=== PATIENT | female | born 1985 | race Caucasian/White ===

== ENCOUNTER 2019-06-07 02:25 | Inpatient (IN) ==
[2019-06-07] MEDS ORDERED: OXYTOCIN 30 UNITS/500 ML BAG IV PRN ×3 (03:15→23:16)
[2019-06-07] MEDS ORDERED: miSOPROStoL 50 MCG TAB PO ONE (03:18)
[2019-06-07 03:53] LABS: Hematocrit (blood only) 40.5 % (37-47); Hemoglobin 13.7 g/dL (12.0-16.0); Mean Corpuscular Hemoglobin 29.3 pg (25-34); Mean Corpuscular Volume 86.7 fL (80-100); Mean Platelet Volume 11.6 fL (7.4-10.4); Platelet Count 229 K/uL (130-400); RDW Coefficient of Variation 13.8 % (11.5-14.5); RDW Standard Deviation 43.1 fL (36.4-46.3); Red Blood Count 4.67 M/uL (4.2-5.4); White Blood Count 10.25 K/uL (4.8-10.8)
[2019-06-07 04:07] LABS: Mean Corpuscular Hgb Conc 33.8 g/dL (32-36)
--- NOTE | 2019-06-07 04:40 | History & Physical Report ---
Date of Service June 07, 2019 Assessment & Plan (1) Obesity during : (2) Large for gestational age fetus: (3) Spontaneous rupture of membranes: prom, contractions too frequent for cytotec. PLan to allow expectant management for now. Pitocin as needed. fetus category one. History of Present Illness Chief Complaint: rom Primary Care Provider: NO PCP Patient is a with iup at 40 4/7 weeks who presents to labor and delivery with c/o of rom at 1:15am. Notes some cramping. No vb. +fm. uncomplicated other than obesity. Had a 32 week us that showed efw in 93%. Had repeat us at 36 weeks and efw of 93%. Was offered induction for suspected LGA baby after 39 weeks but declined and wanted to await labor. labs--O+/ab-/ri/pap nl/rprnr/hepb-/hiv-/gc/ct-/gtt x 2 nl/panorama low risk/afp neg/ gbs neg Allergies Allergy/AdvReac Type Severity Reaction Status Date / Time No Known Drug Allergies Allergy Verified 06/01/19 12:17 Home Medications Home Medications Medication Instructions Recorded Confirmed Type vit no.[id number] tab PO DAILY 06/07/19 History [ Vitamin] Patient History Medical History (Updated 06/07/19 @ 04:47 by Desire Toth MD, FACOG) History of breast lump History of kidney stones History of varicella History of wisdom tooth extraction Surgical History (Updated 06/07/19 @ 04:47 by Desire Toth MD, FACOG) H/O oral surgery History of appendectomy Social History (Updated 03/01/19 @ 09:41 by Farheen Greene) Preferred Language: Marshallese Communication Ability: Effective Winter Intern Required: No Beliefs That Will Affect Care: None marital status: Current Living Situation: Spouse Other Information That Helps Us Care for You: No Feels Safe at Home: Yes Safety Concerns: Feels Safe At This Time Smoking Status: Never smoker Do You Dip or Chew Tobacco: No ; Second Hand Exposure: No ; Hx Alcohol Use: No Hx Substance Use: No Review of Systems All systems reviewed & are unremarkable except as noted in HPI & below Physical Exam Constitutional: WD/WN, vitals as above Gastrointestinal (Abdomen): soft, nt, nd Psychiatric: A+Ox3, euthymic affect Genitourinary: grossly ruptured cx--ft/70/-2, nursing toco--q2-4min efm--145 with mod variability, accels to 170s, no decels Results & Data Vital Signs (Past 12 Hours) Vital Signs Temp Pulse Resp BP 06/07/19 02:41 91 H 121/79 06/07/19 02:40 36.7 C 91 H 18 121/79
--- NOTE | 2019-06-07 07:24 | Obstetrical Progress Note ---
Date of Service June 07, 2019 Assessment & Plan (1) Spontaneous rupture of membranes: making progress, will get epidural. fetus category one. continue current management Subjective Getting uncomfortable, shaky and nausea. considering getting epidural Physical Exam Constitutional: WD/WN, vitals as above Psychiatric: A+Ox3, euthymic affect Genitourinary: cx--stretched to 3/90/-2, can feel forebag, green mec fluid noted toco--q2-4min efm--130s with mod variability, accels to 160s, no decels Results & Data Vital Signs (Past 12 Hours) Vital Signs Temp Pulse Resp BP 06/07/19 07:11 36.5 C 86 20 131/78 06/07/19 04:45 36.8 C 20 06/07/19 02:41 91 H 121/79 06/07/19 02:40 36.7 C 91 H 18 121/79 PG Care Time/CCT Total # of Minutes Spent Total Time Spent with Patient: Total time spent is greater than 50% in coordination of care (as documented) at patient's floor/unit and/or counseling patient:
[2019-06-07] MEDS: LACTATED RINGER'S 1,000 ML IV PRN ×3 (07:26→19:08)
[2019-06-07] MEDS ORDERED: fentaNYL citrate 100 MCG/2 ML VIAL ONE (07:31)
[2019-06-07] MEDS ORDERED: BUPIVACAINE 0.25% 30 ML VIAL ONE (07:31)
[2019-06-07] MEDS ORDERED: fentaNYL 2MCG/ML ROPIV 1.25MG/ML 100 ML BAG EPI ONE (07:31)
[2019-06-07] MEDS ORDERED: ePHEDrine sulfate 50 MG/ML AMP ONE (07:31)
[2019-06-07] MEDS ORDERED: DiphenhydrAMINE HCL 50 MG/ML VIAL IV PRN (07:35)
[2019-06-07] MEDS ORDERED: NALBUPHINE HCL INJ 10 MG/ML AMP IV PRN (07:35)
[2019-06-07] MEDS ORDERED: NALOXONE HCL 1 MG in SODIUM CHLORIDE 0.9% 1000ML 1,000 ML IV PRN (07:35)
[2019-06-07] MEDS ORDERED: fentaNYL 2MCG/ML ROPIV 1.25MG/ML 100 ML BAG EPI PRN (07:35)
[2019-06-07] MEDS ORDERED: ePHEDrine sulfate 50 MG/ML AMP IV PRN (07:35)
[2019-06-07] MEDS ORDERED: NALOXONE HCL 0.4 MG/1 ML VIAL/CARP IV PRN (07:35)
--- NOTE | 2019-06-07 08:07 | Anesthesiology Consultation ---
Date of Service June 07, 2019 Assessment & Plan Chart Review Chart Review: Acceptable Risk for Labor Epidural Consults Requested none History Height/Weight Height: 5 ft 11 in Weight: 136.078 kg Allergies Allergy/AdvReac Type Severity Reaction Status Date / Time No Known Drug Allergies Allergy Verified 06/01/19 12:17 Medications Home Medications Medication Instructions Recorded Confirmed Last Taken vit no.[id number] tab PO DAILY 06/07/19 06/06/19 20:00 [ Vitamin] Active Medications Generic Name Dose Route Start Last Admin Trade Name Freq PRN Reason Stop Dose Admin Lactated Ringer's 1,000 mls @ 125 mls/hr 06/07/19 03:15 06/07/19 07:26 Lr IV 06/09/19 03:14 999 mls/hr .Q8H PRN Administration L&D Protocol Protocol Past Medical History Medical History History of breast lump History of kidney stones History of varicella History of wisdom tooth extraction Past Family History Family History Grandmother (Maternal) Anemia Mother Breast cancer Uncle Colorectal cancer maternal Grandfather (Maternal) Diabetes Hypertension Past Surgical History Surgical History H/O oral surgery History of appendectomy Social History Smoking Status: Never smoker Do You Dip or Chew Tobacco: No Hx Alcohol Use: No Hx Substance Use: No substance use type: does not use Physical Exam Vital Signs Last Vital Signs Temp 36.5 C 06/07/19 07:11 Pulse 101 H 06/07/19 08:06 Resp 20 06/07/19 07:11 BP 103/58 L 06/07/19 08:06 Pulse Ox 98 06/07/19 08:04 Testing Laboratory Results 06/07/19 03:30
--- NOTE | 2019-06-07 16:55 | Labor Progress Brief Note ---
Date of Service June 07, 2019 Subjective Reason For Note: Routine Evaluation Assessment & Plan (1) Supervision of normal intrauterine in primigravida: 34yo G1 at 40.4 weeks GA. PROM 1. Fetus: Cat 1 2. Labor: Progressing slowly. Continue pitocin 3. Vitals wnl 4. GBS: Negative 5. LGA: Discussed increased risk of shoulder dystocia and PPH. (2) Large for gestational age fetus: (3) Spontaneous rupture of membranes: Physical Exam Genitourinary: Manual OB Exam: + cervical dilation (4.5), + cervical effacement 80%, + station -1 and + amniotic fluid meconium OB Exam Monitor Tracing: + external FHT monitor used, + external uterine monitor used, + category I and + normal FHT variability; no late decelerations present and no variable decelerations Results & Data Vital Signs (Past 12 Hours) Vital Signs Temp Pulse Resp BP Pulse Ox 06/07/19 16:50 83 100 06/07/19 16:45 89 131/53 L 100 06/07/19 16:44 86 92 06/07/19 16:39 83 100 06/07/19 16:34 86 100 06/07/19 16:29 78 111/55 L 99 06/07/19 16:24 79 100 06/07/19 16:19 79 100 06/07/19 16:14 93 H 97/54 L 97 06/07/19 16:09 69 97 06/07/19 16:04 73 97 06/07/19 15:59 75 97 06/07/19 15:58 72 20 103/57 L 06/07/19 15:54 74 100 06/07/19 15:49 82 99 06/07/19 15:44 78 99 06/07/19 15:43 83 110/65 06/07/19 15:39 79 100 06/07/19 15:34 86 98 06/07/19 15:29 70 109/57 L 100 06/07/19 15:24 74 98 06/07/19 15:19 75 97 06/07/19 15:14 77 106/61 97 06/07/19 15:09 75 97 06/07/19 15:04 37.0 C 97 H 20 97 06/07/19 14:59 89 120/71 99 06/07/19 14:54 86 95 06/07/19 14:49 75 96 06/07/19 14:44 83 104/65 98 06/07/19 14:39 67 97 06/07/19 14:34 79 96 06/07/19 14:32 77 94 06/07/19 14:29 73 98 06/07/19 14:28 78 106/70 06/07/19 14:24 82 96 06/07/19 14:19 76 98 06/07/19 14:15 84 100/56 L 06/07/19 14:14 87 98 06/07/19 14:09 78 98 06/07/19 14:04 91 H 98 06/07/19 14:00 20 06/07/19 13:59 103 H 109/57 L 98 06/07/19 13:58 95 H 92 06/07/19 13:54 82 98 06/07/19 13:49 74 96 06/07/19 13:44 92 H 119/73 98 06/07/19 13:39 88 97 06/07/19 13:34 98 H 99 06/07/19 13:29 83 98 06/07/19 13:28 78 121/77 06/07/19 13:24 84 98 06/07/19 13:19 87 96 06/07/19 13:18 109 H 93 06/07/19 13:14 98 H 98 06/07/19 13:13 90 117/71 06/07/19 13:09 118 H 99 06/07/19 13:04 36.5 C 81 20 95 06/07/19 12:59 78 96 06/07/19 12:58 86 99/67 L 06/07/19 12:54 78 96 06/07/19 12:49 71 97 06/07/19 12:47 75 94 06/07/19 12:45 77 106/67 06/07/19 12:44 81 98 06/07/19 12:41 86 94 06/07/19 12:39 79 97 06/07/19 12:34 84 99 06/07/19 12:31 86 93 06/07/19 12:29 75 98 06/07/19 12:28 81 110/64 06/07/19 12:24 74 98 06/07/19 12:20 84 92 06/07/19 12:19 82 99 06/07/19 12:14 94 H 109/59 L 99 06/07/19 12:09 89 98 06/07/19 12:04 89 20 97 06/07/19 12:02 98 H 94 06/07/19 11:59 93 H 112/75 99 06/07/19 11:54 89 98 06/07/19 11:49 71 99 06/07/19 11:44 93 H 98 06/07/19 11:43 93 H 114/59 L 06/07/19 11:39 86 99 06/07/19 11:34 82 98 06/07/19 11:29 83 118/69 98 06/07/19 11:24 123 H 94 06/07/19 11:19 93 H 98 06/07/19 11:14 93 H 114/69 98 06/07/19 11:09 108 H 100 06/07/19 11:04 92 H 99 06/07/19 11:00 36.7 C 20 06/07/19 10:59 83 100 06/07/19 10:58 94 H 104/71 06/07/19 10:54 93 H 98 06/07/19 10:49 79 100 06/07/19 10:44 79 115/77 100 06/07/19 10:39 100 H 98 06/07/19 10:37 81 93 06/07/19 10:34 94 H 100 06/07/19 10:29 96 H 108/55 L 100 06/07/19 10:28 96 H 92 06/07/19 10:24 88 100 06/07/19 10:20 96 H 103/56 L 06/07/19 10:19 90 89 L 06/07/19 10:15 20 06/07/19 10:14 92 H 100 06/07/19 10:09 88 100 06/07/19 10:08 96 H 91 06/07/19 10:04 74 99 06/07/19 09:59 93 H 98/60 L 100 06/07/19 09:54 94 H 99 06/07/19 09:49 85 99 06/07/19 09:45 20 06/07/19 09:44 75 99 06/07/19 09:43 80 101/64 06/07/19 09:39 90 100 06/07/19 09:34 87 99 06/07/19 09:29 75 104/67 100 06/07/19 09:24 72 100 06/07/19 09:19 81 100 06/07/19 09:14 93 H 20 106/66 100 06/07/19 09:09 90 100 06/07/19 09:04 94 H 100 06/07/19 09:00 36.5 C 18 06/07/19 08:59 100 H 100 06/07/19 08:58 83 101/62 06/07/19 08:54 85 97 06/07/19 08:49 78 99 06/07/19 08:44 92 H 105/60 100 06/07/19 08:39 100 H 99 06/07/19 08:34 90 100 06/07/19 08:29 106 H 97 06/07/19 08:25 86 101/58 L 06/07/19 08:24 82 95 06/07/19 08:22 91 H 94 06/07/19 08:21 102 H 95/57 L 06/07/19 08:19 88 96 06/07/19 08:14 91 H 98 06/07/19 08:13 96 H 102/59 L 06/07/19 08:11 106 H 105/64 06/07/19 08:09 93 H 101/60 96 06/07/19 08:07 89 98/58 L 06/07/19 08:06 101 H 103/58 L 06/07/19 08:04 95 H 98 06/07/19 08:03 90 106/61 06/07/19 08:01 90 20 105/57 L 06/07/19 07:59 89 111/59 L 98 06/07/19 07:58 87 114/65 90 06/07/19 07:54 89 98 06/07/19 07:53 84 130/67 06/07/19 07:52 82 120/80 06/07/19 07:49 93 H 99 06/07/19 07:44 85 100 06/07/19 07:39 90 98 06/07/19 07:34 78 139/78 99 06/07/19 07:11 36.5 C 86 20 131/78
--- NOTE | 2019-06-07 19:21 | Labor Progress Brief Note ---
Date of Service June 07, 2019 Subjective Reason For Note: Routine Evaluation Assessment & Plan (1) Spontaneous rupture of membranes: making progress, will get epidural. fetus category one. continue current management (2) Large for gestational age fetus: (3) Supervision of normal intrauterine in primigravida: 34yo G1 at 40.4 weeks GA. PROM 1. Fetus: Cat 1 2. Labor: Progressing slowly. Continue pitocin 3. Vitals wnl 4. GBS: Negative 5. LGA: Discussed increased risk of shoulder dystocia and PPH. Physical Exam Constitutional: WD/WN, vitals as above Psychiatric: A+Ox3, euthymic affect Genitourinary: OB Exam Abdomen: + vertex Manual OB Exam: + cervical dilation (6.5), + cervical effacement 80%, + station -1 and + amniotic fluid meconium OB Exam Monitor Tracing: + external FHT monitor used, + external uterine monitor used, + category I and + normal FHT variability Exam per Jacquie Results & Data Vital Signs (Past 12 Hours) Vital Signs Temp Pulse Resp BP Pulse Ox 06/07/19 19:15 111 H 98 06/07/19 19:14 105 H 141/71 H 89 L 06/07/19 19:10 90 100 06/07/19 19:05 91 H 100 06/07/19 19:01 96 H 92 06/07/19 19:00 96 H 96 06/07/19 18:55 83 99 06/07/19 18:54 91 H 93 06/07/19 18:50 100 H 97 06/07/19 18:48 101 H 94 06/07/19 18:45 80 100 06/07/19 18:43 106 H 108/64 06/07/19 18:40 94 H 100 06/07/19 18:35 91 H 99 06/07/19 18:30 94 H 100 06/07/19 18:29 75 105/58 L 06/07/19 18:25 101 H 98 06/07/19 18:20 97 H 97 06/07/19 18:15 107 H 98 06/07/19 18:13 100 H 104/57 L 06/07/19 18:10 97 H 100 06/07/19 18:05 108 H 98 06/07/19 18:00 97 H 99 06/07/19 17:59 106 H 92/55 L 06/07/19 17:57 98 H 92 06/07/19 17:55 109 H 99 06/07/19 17:50 93 H 100 06/07/19 17:45 103 H 99 06/07/19 17:44 97 H 109/63 06/07/19 17:40 96 H 100 06/07/19 17:35 89 100 06/07/19 17:30 102 H 100 06/07/19 17:29 93 H 100/51 L 06/07/19 17:25 95 H 100 06/07/19 17:22 97 H 92 06/07/19 17:20 103 H 100 06/07/19 17:15 104 H 100 06/07/19 17:14 99 H 107/55 L 06/07/19 17:10 97 H 99 06/07/19 17:05 93 H 100 06/07/19 17:00 36.7 C 84 20 99 06/07/19 16:59 86 109/63 06/07/19 16:55 89 100 06/07/19 16:50 83 100 06/07/19 16:45 89 131/53 L 100 06/07/19 16:44 86 92 06/07/19 16:39 83 100 06/07/19 16:34 86 100 06/07/19 16:29 78 111/55 L 99 06/07/19 16:24 79 100 06/07/19 16:19 79 100 06/07/19 16:14 93 H 97/54 L 97 06/07/19 16:09 69 97 06/07/19 16:04 73 97 06/07/19 15:59 75 97 06/07/19 15:58 72 20 103/57 L 06/07/19 15:54 74 100 06/07/19 15:49 82 99 06/07/19 15:44 78 99 06/07/19 15:43 83 110/65 06/07/19 15:39 79 100 06/07/19 15:34 86 98 06/07/19 15:29 70 109/57 L 100 06/07/19 15:24 74 98 06/07/19 15:19 75 97 06/07/19 15:14 77 106/61 97 06/07/19 15:09 75 97 06/07/19 15:04 37.0 C 97 H 20 97 06/07/19 14:59 89 120/71 99 06/07/19 14:54 86 95 06/07/19 14:49 75 96 06/07/19 14:44 83 104/65 98 06/07/19 14:39 67 97 06/07/19 14:34 79 96 06/07/19 14:32 77 94 06/07/19 14:29 73 98 06/07/19 14:28 78 106/70 06/07/19 14:24 82 96 06/07/19 14:19 76 98 06/07/19 14:15 84 100/56 L 06/07/19 14:14 87 98 06/07/19 14:09 78 98 06/07/19 14:04 91 H 98 06/07/19 14:00 20 06/07/19 13:59 103 H 109/57 L 98 06/07/19 13:58 95 H 92 06/07/19 13:54 82 98 06/07/19 13:49 74 96 06/07/19 13:44 92 H 119/73 98 06/07/19 13:39 88 97 06/07/19 13:34 98 H 99 06/07/19 13:29 83 98 06/07/19 13:28 78 121/77 06/07/19 13:24 84 98 06/07/19 13:19 87 96 06/07/19 13:18 109 H 93 06/07/19 13:14 98 H 98 06/07/19 13:13 90 117/71 06/07/19 13:09 118 H 99 06/07/19 13:04 36.5 C 81 20 95 06/07/19 12:59 78 96 06/07/19 12:58 86 99/67 L 06/07/19 12:54 78 96 06/07/19 12:49 71 97 06/07/19 12:47 75 94 06/07/19 12:45 77 106/67 06/07/19 12:44 81 98 06/07/19 12:41 86 94 06/07/19 12:39 79 97 06/07/19 12:34 84 99 06/07/19 12:31 86 93 06/07/19 12:29 75 98 06/07/19 12:28 81 110/64 06/07/19 12:24 74 98 06/07/19 12:20 84 92 06/07/19 12:19 82 99 06/07/19 12:14 94 H 109/59 L 99 06/07/19 12:09 89 98 06/07/19 12:04 89 20 97 06/07/19 12:02 98 H 94 06/07/19 11:59 93 H 112/75 99 06/07/19 11:54 89 98 06/07/19 11:49 71 99 06/07/19 11:44 93 H 98 06/07/19 11:43 93 H 114/59 L 06/07/19 11:39 86 99 06/07/19 11:34 82 98 06/07/19 11:29 83 118/69 98 06/07/19 11:24 123 H 94 06/07/19 11:19 93 H 98 06/07/19 11:14 93 H 114/69 98 06/07/19 11:09 108 H 100 06/07/19 11:04 92 H 99 06/07/19 11:00 36.7 C 20 06/07/19 10:59 83 100 06/07/19 10:58 94 H 104/71 06/07/19 10:54 93 H 98 06/07/19 10:49 79 100 06/07/19 10:44 79 115/77 100 06/07/19 10:39 100 H 98 06/07/19 10:37 81 93 06/07/19 10:34 94 H 100 06/07/19 10:29 96 H 108/55 L 100 06/07/19 10:28 96 H 92 06/07/19 10:24 88 100 06/07/19 10:20 96 H 103/56 L 06/07/19 10:19 90 89 L 06/07/19 10:15 20 06/07/19 10:14 92 H 100 06/07/19 10:09 88 100 06/07/19 10:08 96 H 91 06/07/19 10:04 74 99 06/07/19 09:59 93 H 98/60 L 100 06/07/19 09:54 94 H 99 06/07/19 09:49 85 99 06/07/19 09:45 20 06/07/19 09:44 75 99 11/14/19 09:43 80 101/64 14/19 09:39 90 100 14/19 09:34 87 99 19 09:29 75 104/67 100 19 09:24 72 100 19 09:19 81 100 06/07/19 09:14 93 H 20 106/66 100 06/07/ 09:09 90 100 06/07/19 09:04 94 H 100 06/07/19 09:00 36.5 C 18 06/07/19 08:59 100 H 100 19 08:58 83 101/62 06/07/19 08:54 85 97 06/07/19 08:49 78 99 06/07/19 08:44 92 H 105/60 100 06/07/19 08:39 100 H 99 06/07/19 08:34 90 100 06/07/19 08:29 106 H 97 06/07/19 08:25 86 101/58 L 06/07/19 08:24 82 95 06/07/19 08:22 91 H 94 06/07/19 08:21 102 H 95/57 L 06/07/19 08:19 88 96 06/07/19 08:14 91 H 98 06/07/19 08:13 96 H 102/59 L 06/07/19 08:11 106 H 105/64 06/07/19 08:09 93 H 101/60 96 06/07/19 08:07 89 98/58 L 06/07/19 08:06 101 H 103/58 L 06/07/19 08:04 95 H 98 06/07/19 08:03 90 106/61 06/07/19 08:01 90 20 105/57 L 06/07/19 07:59 89 111/59 L 98 06/07/19 07:58 87 114/65 90 06/07/19 07:54 89 98 06/07/19 07:53 84 130/67 06/07/19 07:52 82 120/80 06/07/19 07:49 93 H 99 06/07/19 07:44 85 100 06/07/19 07:39 90 98 06/07/19 07:34 78 139/78 99
[2019-06-07] MEDS ORDERED: BUTORPHANOL TARTRATE 1 MG/ML VIAL ONE (21:32)
[2019-06-07] MEDS ORDERED: BUTORPHANOL TARTRATE 1 MG/ML VIAL IV ONE (21:38)
[2019-06-07] MEDS ORDERED: CEFAZOLIN 2000MG 2,000 MG/15 ML SYR IV ONE (21:40)
[2019-06-07] MEDS ORDERED: miSOPROStoL 200 MCG TAB ONE (21:56)
[2019-06-07] MEDS ORDERED: SUPERCREAM 0.870% 15 GM JAR EXT PRN (23:16)
[2019-06-07] MEDS ORDERED: ACETAMINOPHEN 325 MG TAB PO PRN (23:16)
[2019-06-07] MEDS ORDERED: DIPHTHERIA/TETANUS/PERTUSSIS 0.5 ML SYR/VIAL IM ONE (23:16)
[2019-06-07] MEDS ORDERED: BENZOCAINE 20% AER SPR 82.5 GM CAN EXT PRN (23:16)
[2019-06-07] MEDS ORDERED: HYDROCORTISONE ACETATE 25 MG SUPP PR PRN (23:16)
[2019-06-07] MEDS ORDERED: BISACODYL 10 MG SUPP PR PRN (23:16)
--- NOTE | 2019-06-08 02:55 | Anesthesia Procedure Note ---
Date of Service June 08, 2019 Anesthesia Post Epidural Note Vital Signs Vital Signs: Temp Pulse Resp BP Pulse Ox 37.2 C 96 H 20 130/64 99 06/07/19 23:30 06/08/19 00:30 06/08/19 00:30 06/08/19 00:30 06/07/19 22:25 Pain Intensity Sacrum: Pain Intensity: 0 Notes Mental Status: alert / awake / arousable Nausea / Vomiting: adequately controlled Pain: adequately controlled Airway Patency, RR, SpO2: stable & adequate BP & HR: stable & adequate Hydration State: stable & adequate Neuraxial Anesthesia: was administered and sensory block is resolving Anesthetic Complications: no major complications apparent and Pt Satisfied with anesthetic care Epidural: Removed without complications and With tip intact
--- NOTE | 2019-06-08 04:04 | Delivery Summary ---
DATE OF OPERATION: 06/07/2019 PROCEDURE: Normal spontaneous vaginal delivery with third degree perineal laceration repair. SURGEON: Reese Jolly MD PREOPERATIVE DIAGNOSES: 1. Single intrauterine at 40 weeks 4 days gestational age. 2. Premature rupture of membranes with light meconium. 3. Large for gestational age fetus. POSTOPERATIVE DIAGNOSES: 1. Single intrauterine at 40 weeks 4 days gestational age. 2. Premature rupture of membranes for light meconium. 3. Large for gestational age fetus. 4. Status post delivery and repair. ESTIMATED BLOOD LOSS: 400 mL DRAINS: None. FLUIDS: Continuous lactated ringer. URINE OUTPUT: Not measured. COMPLICATIONS: Third degree perineal laceration. FINDINGS: Viable male infant with weight of 9 pounds 7-1/2 ounces and Apgars of 8 and 9 at 1 and 5 minutes respectively. DESCRIPTION OF PROCEDURE: The patient progressed to 10 cm dilated, 100% effaced, +2 station, pushed over intact perineum with epidural anesthesia and delivered a viable male infant with weight and Apgars as noted above. The head of the delivered in MAGI position, restituted to right transverse. No nuchal was noted. Body and shoulders quickly followed. was noted to be vigorous soon after delivery. A 1-minute delayed cord clamping was initiated, after which the cord was double clamped and cut. Cord blood was then obtained. Attention was then turned to deliver the placenta, which was delivered intact, 3-vessel cord with gentle cord traction. On inspection of the perineum, vagina, and cervix, there was noted to be a complete third degree laceration. The external anal sphincter was identified including the capsule. A 2-0 Vicryl with 4 interrupted stitch placed at the 3, 6, 9 and 12 o'clock position relative to the anal sphincter was performed. Care was made and was taken to ensure that it included the capsule in each stitch on both aspects of the anal sphincter body. The second degree portion of the laceration was then repaired. This was repaired in 3-0 Vicryl in the traditional crown stitch. This was carried down to the level of the skin suture on the perineum. The skin suture on the perineum was noted to go right up against the anal verge and therefore 3-0, SH was used to close the skin in a continuous running subcuticular stitch continuing up and then closing within the vaginal mucosa with a continuous running stitch at the entry of the peritoneum continued to the hymenal ring. Needle, sponge and instrument counts were correct at the completion of the case. Both mother and were stable in immediate post-delivery. We discussed bowel care. The patient received 2 grams of Ancef after it was discovered to be a third degree laceration. I attest to the content of the Intraoperative Record and any orders documented therein. Any exception s are noted below.
[2019-06-08 06:40] LABS: Hematocrit (blood only) 38.8 % (37-47); Hemoglobin 12.9 g/dL (12.0-16.0); Mean Corpuscular Hemoglobin 28.7 pg (25-34); Mean Corpuscular Hgb Conc 33.2 g/dL (32-36); Mean Corpuscular Volume 86.4 fL (80-100); Mean Platelet Volume 10.7 fL (7.4-10.4); Platelet Count 213 K/uL (130-400); RDW Coefficient of Variation 13.6 % (11.5-14.5); RDW Standard Deviation 42.9 fL (36.4-46.3); Red Blood Count 4.49 M/uL (4.2-5.4); White Blood Count 17.86 K/uL (4.8-10.8)
--- NOTE | 2019-06-08 06:50 | Obstetrical Progress Note ---
Date of Service <Feliciano Parrish DO - Last Filed: 06/08/19 06:50> June 08, 2019 Assessment & Plan <DO Zayra Larios Last Filed: 06/08/19 06:50> (1) : -PPD#1 -Vitals reviewed, WNL (Tmax 37.0) - GBS -, Blood Type O+ - Clinically stable. - Feels well today. Eating well, voiding well, ambulating well. - Pain well controlled. - Routine post- care. - After discharge will have [address] Jolly Day #:: 1 Subjective <DO Zayra Larios Last Filed: 06/08/19 06:50> Ambulation: ambulating normally Voiding: no voiding problems Passing Gas:: No Diet Tolerance:: regular diet Lochia:: Moderate Feeding Type:: breast feeding Current Pain Level(1-10): 0 (improved with analgesics) Patient is a 34 PPD#1. Patient delivered overnight around 21:30. Patient states that she is feeling well today and that her pain is well controlled. She has no other complaints at this time. Constitutional: no fever and no chills Respiratory: no cough, no dyspnea and no wheezing Cardiovascular: no chest pain, no dyspnea, no palpitations, no edema and no calf pain Breast: no breast pain Gastrointestinal: no abdominal pain, no nausea and no vomiting Genitourinary (female): no dysuria and no difficulty urinating Neurologic: no headache(s) Physical Exam <DO Zayra Larios Last Filed: 06/08/19 06:50> Constitutional WD/WN, vitals as above Respiratory normal respiratory effort, lungs clear to auscultation Cardiovascular Rate/Rhythm: regular rate and regular rhythm Heart Sounds: normal S1 and normal S2; no click, no gallop, no murmur and no cardiac rub Extremities: + edema (+1); no calf tenderness Gastrointestinal (Abdomen) Inspection/Auscultation: abdomen normal to inspection and normal bowel sounds Percussion/Palpation: abdomen soft; abdomen nontender Genitourinary OB Exam Abdomen: + fundal height Fundus: + firm and + relation to umbilicus (1cm below); not tender and not boggy Results & Data <DO Zayra Larios Last Filed: 06/08/19 06:50> Vital Signs (Past 12 Hours) Vital Signs Temp Pulse Pulse Resp BP BP Pulse Ox 06/08/19 04:00 37.0 C 80 20 130/80 06/08/19 01:00 37.1 C 82 18 138/82 06/08/19 00:30 96 H 20 130/64 06/08/19 00:15 96 H 122/59 L 06/08/19 00:01 90 118/58 L 06/08/19 00:00 20 06/07/19 23:45 75 137/70 06/07/19 23:31 187 H 136/90 06/07/19 23:30 37.2 C 18 06/07/19 23:15 80 16 129/67 06/07/19 23:00 82 16 133/77 06/07/19 22:45 84 19 128/81 06/07/19 22:30 36.8 C 75 18 127/81 06/07/19 22:25 67 99 06/07/19 22:20 75 99 06/07/19 22:15 79 99 06/07/19 22:10 81 98 06/07/19 22:05 83 97 06/07/19 22:00 88 98 06/07/19 21:55 94 H 97 06/07/19 21:50 81 93 06/07/19 21:45 81 92 06/07/19 21:40 90 99 06/07/19 21:35 89 96 06/07/19 21:31 87 92 06/07/19 21:30 92 H 96 06/07/19 21:25 79 98 06/07/19 21:20 89 100 06/07/19 21:19 92 H 93 06/07/19 21:15 97 H 96 06/07/19 21:13 111 H 93 06/07/19 21:10 124 H 98 06/07/19 21:05 105 H 94 06/07/19 21:02 90 85 L 06/07/19 21:00 103 H 99 06/07/19 20:55 92 H 86 L 06/07/19 20:50 79 100 06/07/19 20:45 98 H 98 06/07/19 20:40 108 H 100 06/07/19 20:38 92 H 93 06/07/19 20:35 97 H 100 06/07/19 20:30 97 H 99 06/07/19 20:25 105 H 96 06/07/19 20:24 96 H 93 06/07/19 20:20 96 H 100 06/07/19 20:18 85 92 06/07/19 20:15 102 H 98 06/07/19 20:13 80 111/56 L 06/07/19 20:11 108 H 94 06/07/19 20:10 91 H 94 06/07/19 20:06 107 H 93 06/07/19 20:05 96 H 95 06/07/19 20:00 98 H 98 06/07/19 19:58 101 H 114/65 89 L 06/07/19 19:55 100 H 97 06/07/19 19:50 121 H 98 06/07/19 19:45 106 H 98 06/07/19 19:44 113 H 89 L 06/07/19 19:40 106 H 98 06/07/19 19:35 123 H 97 06/07/19 19:31 107 H 129/58 L 06/07/19 19:30 115 H 96 06/07/19 19:25 113 H 100 06/07/19 19:20 104 H 99 06/07/19 19:15 111 H 98 06/07/19 19:14 105 H 141/71 H 89 L 06/07/19 19:10 90 100 06/07/19 19:05 91 H 100 06/07/19 19:01 96 H 92 06/07/19 19:00 36.8 C 96 H 18 96 06/07/19 18:55 83 99 06/07/19 18:54 91 H 93 06/07/19 18:50 100 H 97 06/07/19 18:48 101 H 94 <Reese Jolly MD - Last Filed: 06/08/19 08:01> Co-Signing Physician Notes Patient seen and evaluated and agree with the above findings and plan. Discussed bowel care for 3rd degree lac Resident Activity Tracking <Feliciano Parrish DO - Last Filed: 06/08/19 06:50> Resident Involvement: Resident Care Provided Care Provided: OB Delivery
[2019-06-08] MEDS: IBUPROFEN 600 MG TAB PO PRN ×2 (07:16→16:06)
[2019-06-08] MEDS: PRENATAL VITAMIN 1 TAB PO SCH (08:32)
[2019-06-08] MEDS: DOCUSATE SODIUM 100 MG CAP PO SCH ×3 (08:32→20:25)
[2019-06-08] MEDS ORDERED: BISACODYL 5 MG TABEC PO SCH (20:00)
[2019-06-09] MEDS: IBUPROFEN 600 MG TAB PO PRN (02:20)
[2019-06-09 07:12] LABS: Hematocrit (blood only) 38.5 % (37-47); Hemoglobin 12.5 g/dL (12.0-16.0)
--- NOTE | 2019-06-09 07:12 | Obstetrical Progress Note ---
Date of Service <Feliciano Quanashu - Last Filed: 06/09/19 07:12> June 09, 2019 Assessment & Plan <Feliciano Quanashu DO Iverson Last Filed: 06/09/19 07:12> (1) : -PPD#2 -Vitals reviewed, WNL (Tmax 36.8) - GBS -, Blood Type O+ - Clinically stable. - Feels well today. Eating well, voiding well, ambulating well. - Pain well controlled. - Educated about proper bowel care today and cleaning after bowel movements. - Patient noted a bowel movement yesterday went well. - Routine post- care. - After discharge will have [address] Jolly Day #:: 2 Subjective <Feliciano QuanDO ashu - Last Filed: 06/09/19 07:12> Ambulation: ambulating normally Voiding: no voiding problems Passing Gas:: Yes Diet Tolerance:: regular diet Lochia:: Small Feeding Type:: breast feeding Current Pain Level(1-10): 0 Patient is a 34 PPD#2. Patient states that she is feeling well today and that her pain is well controlled. She has no other complaints at this time. Constitutional: no fever and no chills Respiratory: no cough, no dyspnea and no wheezing Cardiovascular: no chest pain, no dyspnea, no palpitations, no edema and no calf pain Breast: no breast pain Gastrointestinal: no abdominal pain, no nausea and no vomiting Genitourinary (female): no dysuria and no difficulty urinating Neurologic: no headache(s) Physical Exam <Feliciano Quanashu Zayra Last Filed: 06/09/19 07:12> Constitutional WD/WN, vitals as above Respiratory normal respiratory effort, lungs clear to auscultation Cardiovascular Rate/Rhythm: regular rate and regular rhythm Heart Sounds: normal S1 and normal S2; no click, no gallop, no murmur and no cardiac rub Extremities: no calf tenderness and no edema Gastrointestinal (Abdomen) Inspection/Auscultation: abdomen normal to inspection and normal bowel sounds Percussion/Palpation: abdomen soft; abdomen nontender Genitourinary OB Exam Abdomen: + fundal height Fundus: + firm and + relation to umbilicus (3cm below); not tender and not boggy Results & Data <Feliciano Parrish DO - Last Filed: 06/09/19 07:12> Vital Signs (Past 12 Hours) Vital Signs Temp Pulse Resp BP 06/08/19 23:30 36.4 C L 75 18 123/80 06/08/19 20:20 36.8 C 79 18 113/78 <Rochelle Mejia MD, FACOG - Last Filed: 06/09/19 07:49> Co-Signing Physician Notes Resident Physician Supervision Note: I was present with Dr. Parrish during the history and exam. I discussed the case with the resident and agree with the findings and plan as documented in the note. Any exceptions or clarifications are listed here: [None] Documented By: Rochelle Mejia MD, FACOG Resident Activity Tracking <Feliciano Parrish DO - Last Filed: 06/09/19 07:12> Resident Involvement: Resident Care Provided Care Provided: OB Delivery
[2019-06-09] MEDS: PRENATAL VITAMIN 1 TAB PO SCH (08:27)
[2019-06-09] MEDS: DOCUSATE SODIUM 100 MG CAP PO SCH (08:27)
== END 2019-06-09 15:42 | disposition home or self-care (01) | DRG 768 ==
LOC: OPB 02:25 → 4S1 02:26 → 4S2 06-08 01:01

== ENCOUNTER 2022-11-01 07:09 | Inpatient (IN) ==
--- NOTE | 2022-10-21 15:24 | Anesthesiology Consultation ---
Date of Service October 21, 2022 Assessment & Plan (1) Encounter for pre-operative examination: Chart Review Chart Review: entry level manager initiated -COVID screening: Per PAT nursing assessment on 10/21/22. Pt with cough/congesti on- symptoms started 10/13/22. Home Covid tests have been negative (took several). No known COVID-19 positive contacts or current COVID-19 related symptoms. Travel screen negative. Patient vaccinated for Covid. Due to inpatient status- patient will get preop Covid testing done at [facility] 10/22/22= will await results History Surgery Operation Date: 11/01/22 08:55 Proposed Procedures p Section in LD (Delivery of Baby through Abdominal Incision) - Fara Tijerina MD, FACOG Height/Weight Height: 5 ft 10 in Weight: 139.253 kg Allergies Allergy/AdvReac Type Severity Reaction Status Date / Time No Known Drug Allergies Allergy Verified 10/21/22 14:54 Medications Home Medications Medication Instructions Recorded Confirmed Last Taken vits no.124-ferrous fum 1 tab PO DAILY 06/07/19 10/21/22 06/06/19 20:00 27 mg iron-folic acid 800 mcg tablet ( Vitamin) aspirin 81 mg tablet,delayed 81 mg PO DAILY 05/24/22 10/21/22 Unknown release Breast Pump #1 ea 09/28/22 10/21/22 Unknown Past Medical History Medical History Acid reflux Anxiety History of breast lump History of kidney stones no surgery History of varicella SAB (spontaneous ) Past Family History Family History Grandmother (Maternal) Anemia Myocardial infarction Mother Breast cancer Uncle Colorectal cancer maternal Grandfather (Maternal) Diabetes Myocardial infarction Hypertension Father Skin cancer Other No family history of adverse response to anesthesia Denies family history of Ovarian cancer Prostate cancer Past Surgical History Surgical History History of appendectomy History of tooth extraction History of wisdom tooth extraction Social History Smoking Status: Never smoker Hx Alcohol Use: No Alcohol type: wine Hx Substance Use: No substance use type: does not use
--- NOTE | 2022-10-29 14:49 | History & Physical Report ---
Date of Service October 29, 2022 Assessment & Plan (1) 39 weeks gestation of : (2) AMA (advanced maternal age) multigravida 35+: (3) Obesity affecting : (4) Breech presentation: Plan Will plan c/s on day of admission with breech presentation. Patient has had fetus turn cephalic at times and will likley want to proceed with elective c/s even if baby cephalic on day of admission. She does have some concerns with size of baby and attempt at vaginal delivery due to lacerations etc. Consent reviewed and signed. Instructions reviewed. Plan c/s on tuesday. History of Present Illness Chief Complaint: planned c/s Primary Care Provider: SOBEIDA Babcock 37yo at 39 +wks ega on day of her admission for planned c/s. Patient with baby of unstable lie, breech today on u/s in background of polyhydramnios. She notes no pain. No rom, vb. +FM. NST today reactive. PNC c/b 1. AMA 2. Polyhydramnios 3. Breech presentation 4. Obesity PNL rhpos, ri, gbs neg OBH: x 1, sab x 1 GYNH: nl paps, no stds Allergies Allergy/AdvReac Type Severity Reaction Status Date / Time No Known Drug Allergies Allergy Verified 10/29/22 13:31 Home Medications Medication Instructions Recorded Confirmed Type vits no.124-ferrous fum 1 tab PO DAILY 06/07/19 10/29/22 History 27 mg iron-folic acid 800 mcg tablet ( Vitamin) aspirin 81 mg tablet,delayed 81 mg PO DAILY 05/24/22 10/29/22 History release Breast Pump #1 ea 09/28/22 10/29/22 Rx Patient History Medical History (Updated 10/29/22 @ 14:47 by Fara Tijerina MD, FACOG) Acid reflux Anxiety History of breast lump History of kidney stones no surgery History of varicella SAB (spontaneous ) Surgical History History of appendectomy History of tooth extraction History of wisdom tooth extraction Family History Grandmother (Maternal) Anemia Myocardial infarction Mother Breast cancer Uncle Colorectal cancer maternal Grandfather (Maternal) Diabetes Myocardial infarction Hypertension Father Skin cancer Other No family history of adverse response to anesthesia Denies family history of Ovarian cancer Prostate cancer Social History (Updated 03/04/22 @ 07:42 by Charity Nails RN) Smoking Status: Never smoker Second Hand Exposure: No; Hx Alcohol Use: No Hx Substance Use: No Preferred Language: Tristanian Communication Ability: Effective Visual Impairment: No Limitations Hearing Ability: Normal Chief Catalyst Operator Required: No Beliefs That Will Affect Care: None marital status: marital status details: Freedom Joshua (34) [phone] Current Living Situation: Family Current Living Situation Comment: Lives with spouse and 1 child. 2 dogs. 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
[~2022-11-01 07:09] MED LIST: CITRIC ACID/SODIUM CITRATE 15 ML UDC PO SCH; LACTATED RINGER'S 1,000 ML IV SCH; ceFAZolin 3,000 MG in DEXTROSE 5% 50 ML IV SCH
[2022-11-01] MEDS ORDERED: LIDOCAINE 1% LOCAL 20 ML VIAL INFIL PRN (08:17)
[2022-11-01] MEDS ORDERED: OXYTOCIN 30 UNITS/500 ML BAG IV PRN (08:17)
--- NOTE | 2022-11-01 08:43 | History & Physical Bridge Note ---
Date of Service November 01, 2022 History & Physical Bridge Note I have examined the patient, reviewed the History & Physical and in the interval since the performance of the History & Physical I have noted the following changes of clinical significance: no changes noted, bedside u/s breech presentation.
[2022-11-01] MEDS ORDERED: fentaNYL citrate PF 100 MCG/2 ML VIAL ONE (08:52)
[2022-11-01] MEDS ORDERED: OXYTOCIN 10 UNITS/ML 10ML VIAL ONE (08:52)
[2022-11-01] MEDS ORDERED: PHENYLEPHRINE HCL 10 MG/ML VIAL ONE (08:52)
[2022-11-01] MEDS ORDERED: MoRPHine SULFATE PF 1 MG/ML 10 ML AMP/VIAL ONE (08:53)
[2022-11-01 09:03] LABS: Basophils # (auto) 0.04 K/uL (0-0.2); Basophils % (auto) 0.5 %; Eosinophils # (auto) 0.17 K/uL (0-0.50); Eosinophils % (auto) 1.9 %; Hematocrit (blood only) 34.5 % (37.0-47.0); Hemoglobin 11.2 g/dl (12.0-16.0); Immature Granulocytes # (auto) 0.05 K/uL (0.01-0.20); Immature Granulocytes % (auto) 0.6 %; Lymphocytes # (auto) 2.11 K/uL (1.2-3.4); Lymphocytes % (auto) 23.8 %; Mean Corpuscular Hemoglobin 27.5 pg (25.0-34.0); Mean Corpuscular Hgb Conc 32.5 g/dL (32.0-36.0); Mean Corpuscular Volume 84.8 fL (80.0-100.0); Mean Platelet Volume 10.4 fL (9.4-12.4); Monocytes # (auto) 0.66 K/uL (0.11-0.59); Monocytes % (auto) 7.5 %; Neutrophils # (auto) 5.82 K/uL (1.40-6.50); Neutrophils % (auto) 65.7 %; Platelet Count 266 K/uL (130-400); RDW Standard Deviation 42.8 fL (36.4-46.3); Red Blood Count 4.07 M/uL (4.20-5.40); White Blood Count 8.85 K/ul (4.8-10.8)
[2022-11-01] MEDS ORDERED: MoRPHine SULFATE PF 1 MG/ML 10 ML AMP/VIAL INT SPINAL ONE (09:05)
[2022-11-01] MEDS ORDERED: LACTATED RINGER'S 500 ML IV PRN (09:05)
[2022-11-01] MEDS ORDERED: NALOXONE HCL 0.4 MG/1 ML VIAL/CARP IV PRN (09:05)
[2022-11-01] MEDS ORDERED: NALOXONE HCL 0.08 MG in SYRINGE 1.8 ML IV PRN (09:05)
[2022-11-01] MEDS ORDERED: diphenhydrAMINE 50 MG/ML VIAL IV PRN (09:05)
[2022-11-01] MEDS ORDERED: HYDROmorphone INJ 0.5 MG/0.5 ML SYR IV PRN (09:05)
[2022-11-01] MEDS ORDERED: NALBUPHINE HCL INJ 10 MG/ML AMP IV PRN (09:05)
[2022-11-01] MEDS ORDERED: ePHEDrine sulfate 50 MG/ML AMP IV PRN (09:05)
[2022-11-01] MEDS ORDERED: ONDANSETRON INJ 2 MG/ML 2 ML VIAL IV PRN (09:05)
[2022-11-01] MEDS ORDERED: NALOXONE HCL 1 MG in SODIUM CHLORIDE 0.9% 1000ML 1,000 ML IV PRN (09:05)
[2022-11-01] MEDS ORDERED: SODIUM CHLORIDE 0.9% 1000ML 1,000 ML IV SCH (09:15)
[2022-11-01] MEDS ORDERED: DC INTRASPINAL MORPHINE SCH (09:15)
[2022-11-01] MEDS ORDERED: NO NARCOTICS OR SEDATIVES SCH (09:15)
[2022-11-01] MEDS ORDERED: ePHEDrine sulfate 50 MG/ML AMP ONE (10:03)
--- NOTE | 2022-11-01 10:56 | Post Operative Brief Note ---
PG Immediate Post Op with CF Date of Surgery November 01, 2022 Pre & Post Diagnosis Operation Date: 11/01/22 08:55 Pre-Op Diagnosis: 39 week IUP, Breech Presentation Post-Op Diagnosis: 39 week IUP, Breech Presentation I identified the patient and participated in the time-out.: Yes Procedure Operation Date: 11/01/22 08:55 Actual Procedures p Primary Low Transverse Section in LD (Delivery of Baby through Abdominal Incision) delivery of live female child at 1019 - Fara Tijerina MD, FACOG Surgeon Fara Tijerina MD, FACOG Tallow Pumper PGY1 Estimated Blood Loss 600 Findings Consistent with Post-Op Diagnosis (viable female apgars 8,9. normal uterus tubes and ovaries bilaterally, footling breech) Fluids 1000cc Specimens Specimen Description: 1. Placenta--hold 2. Cord blood Drains Copeland Catheter Anesthesia Type Spinal Complications none Disposition Accompanied Patient To Recovery: No Disposition: L&D
--- NOTE | 2022-11-01 11:06 | Operative Report ---
PG Post Operative Report Pre & Post Diagnosis Operation Date: 11/01/22 08:55 Pre-Op Diagnosis: 39 Week IUP Breech Presentation Post-Op Diagnosis: 39 Week IUP Breech Presentation I identified the patient and participated in the time-out.: Yes Procedure Operation Date: 11/01/22 08:55 Actual Procedures p Primary Low Transverse Section in LD (Delivery of Baby through Abdominal Incision) delivery of live female child at 1019 - Fara Tijerina MD, FACOG Surgeon Fara Tijerina MD, FACOG Sinker Puller Marilyn, PGY1 Estimated Blood Loss 600 Findings Consistent with Post-Op Diagnosis (viable female apgars 8,9. normal uterus tubes and ovaries bilaterally, footling breech) Fluids 1000cc Specimens cord blood Drains lee Anesthesia Type Spinal Complications none Disposition Accompanied Patient To Recovery: No Disposition: L&D Indications 37yo at 39wks ega with breech presentation of fetus, for planned c/s. Description of Procedure The patient was taken to the operating room and identified. After adequate anesthesia was obtained, she was placed in the supine position with a leftward tilt on the operating table and prepped and draped in the usual sterile fashion. A lee catheter had already been placed. The knife was used to create a Pfannensteil skin incision that was carried down to the underlying layer of fascia. The fascia was nicked in the midline and this opening was extended laterally using Marrero scissors. Wesley clamps were placed on the superior and inferior aspect of the fascial incision tenting it upward and the underlying rectus muscles were dissected off the overlying fascia both sharply and bluntly using Marrero scissors. The rectus muscles were bluntly in the midline. The peritoneal cavity was bluntly entered into. This opening was stretched. The bladder blade was placed. The vesicouterine peritoneum was elevated and opened up into and the bladder flap was created digitally and bladder blade was replaced. The knife was used to create a hysterotomy and this opening was stretched. The operators hand was placed through the hysterotomy and the bladder blade was removed. The feet were grasped and fundal pressure given. The incision was extended on right with bandage scissors and the operators hand while holding feet helped to bring buttocks to hysterotomy with fundal pressure. The baby was delivered to the scapula and the arms were swept across the anterior midline. The head was flexed and delivered. The cord was clamped and cut and the 's mouth and nares were bulb suction. The was handed off to the awaiting pediatricians. Cord blood was obtained. The placenta was manually expressed. The uterus was exteriorized and cleared of all clots and debris. Dilute IV Pitocin was begun. The uterine tone was improving. The hysterotomy was closed in a running interlocking fashion using 0 Vicryl followed by a second imbricating layer of 0 Vicryl. The hysterotomy was not hemostatic requiring figure of eight sutures of 2-0 vicryl for excellent hemostasis. The pelvis was suctioned of any blood. The uterus was returned to the abdomen. The gutters were cleared of all clots and debris. The hysterotomy was reinspected and noted to be hemostatic. The fascia was then closed in running fashion using 0 Vicryl. The subcutaneous fat was copiously irrigated and reapproximated using 2-0 chromic. The skin was closed in a subcuticular fashion using 4-0 monocryl. At this point the procedure was terminated. The patient was transferred to the recovery room in stable condition. All sponge, lap and needle counts are correct x2. I attest to the content of the Intraoperative Record and any orders documented therein. Any exceptions are noted below. OB Procedure Charges [id number]
[2022-11-01] MEDS: KETOROLAC 30 MG/ML VIAL IV PRN ×2 (12:05→21:25)
[2022-11-01] MEDS ORDERED: MAGNESIUM HYDROXIDE SUSP 30 ML UDC PO PRN (12:27)
[2022-11-01] MEDS ORDERED: DIPHTHERIA/TETANUS/PERTUSSIS 0.5mL SYR/VIAL (Age 7+yrs) IM ONE (12:27)
[2022-11-01] MEDS ORDERED: SENNA 8.6 MG TAB PO PRN (12:27)
[2022-11-01] MEDS ORDERED: HYDROCORTISONE ACETATE 25 MG SUPP PR PRN (12:27)
[2022-11-01] MEDS ORDERED: KETOROLAC 30 MG/ML VIAL IV PRN (12:27)
[2022-11-01] MEDS ORDERED: BENZOCAINE 20% AER SPR 82.5 GM CAN EXT PRN (12:27)
[2022-11-01] MEDS: OXYTOCIN 20 UNITS in LACTATED RINGER'S 1,000 ML IV SCH ×2 (13:01→21:33)
--- NOTE | 2022-11-01 14:07 | Anesthesiology Progress Note ---
Date of Service November 01, 2022 Anesthesia Post Procedure Vital Signs Vital Signs: Temp Pulse Resp BP Pulse Ox 11/01/22 13:05 36.7 C 79 16 106/61 98 11/01/22 12:35 36.7 C 87 16 112/74 11/01/22 12:05 74 16 112/58 L 98 11/01/22 11:55 69 14 113/59 L 95 11/01/22 11:45 75 14 113/57 L 94 11/01/22 11:35 36.4 C L 70 14 111/58 L 96 11/01/22 11:25 78 16 111/54 L 95 11/01/22 11:15 71 16 103/58 L 97 11/01/22 11:05 36.1 C L 75 16 106/58 L 94 11/01/22 13:25 99 11/01/22 13:25 85 11/01/22 13:20 100 11/01/22 13:20 77 11/01/22 13:15 99 11/01/22 13:15 76 11/01/22 13:10 99 11/01/22 13:10 75 11/01/22 13:05 99 11/01/22 13:05 86 11/01/22 13:05 78 11/01/22 13:05 106/61 11/01/22 13:00 99 11/01/22 13:00 72 11/01/22 12:55 98 11/01/22 12:55 77 11/01/22 12:56 77 11/01/22 12:56 106/61 11/01/22 12:50 99 11/01/22 12:50 80 11/01/22 12:45 100 11/01/22 12:45 80 11/01/22 12:40 97 11/01/22 12:40 79 11/01/22 12:35 98 11/01/22 12:35 82 11/01/22 12:35 122/74 11/01/22 12:30 99 11/01/22 12:30 67 11/01/22 12:25 100 11/01/22 12:25 63 11/01/22 12:25 62 11/01/22 12:25 114/62 11/01/22 12:20 99 11/01/22 12:20 85 11/01/22 12:15 97 11/01/22 12:15 71 11/01/22 12:15 116/66 11/01/22 12:10 99 11/01/22 12:10 69 11/01/22 12:05 98 11/01/22 12:05 74 11/01/22 12:05 112/58 L 11/01/22 12:00 98 11/01/22 12:00 69 11/01/22 11:55 95 11/01/22 11:55 69 11/01/22 11:55 74 11/01/22 11:55 113/59 L 11/01/22 11:50 97 11/01/22 11:50 75 11/01/22 11:45 94 11/01/22 11:45 80 11/01/22 11:45 113/57 L 11/01/22 11:40 97 11/01/22 11:40 72 11/01/22 11:39 94 11/01/22 11:39 83 11/01/22 11:35 96 11/01/22 11:35 67 11/01/22 11:35 111/58 L 11/01/22 11:30 95 11/01/22 11:30 80 11/01/22 11:29 93 11/01/22 11:29 82 11/01/22 11:25 97 11/01/22 11:25 84 11/01/22 11:25 78 11/01/22 11:25 111/54 L 11/01/22 11:20 96 11/01/22 11:21 93 11/01/22 11:20 74 11/01/22 11:21 79 11/01/22 11:15 95 11/01/22 11:15 72 11/01/22 11:15 103/58 L 11/01/22 11:04 75 11/01/22 11:04 106/58 L 11/01/22 07:17 36.4 C L 107 H 20 106/71 Pain Intensity Lower Medial Abdomen: Pain Intensity: 2 Transfer of Care Handoff Completed per policy Notes Mental Status: alert / awake / arousable and participated in evaluation Patient Amnestic to Procedure: Yes Nausea / Vomiting: adequately controlled Pain: adequately controlled Airway Patency, RR, SpO2: stable & adequate BP & HR: stable & adequate Hydration State: stable & adequate Neuraxial Anesthesia: was administered and sensory block is resolving Anesthetic Complications: no major complications apparent and Pt Satisfied with anesthetic care
[2022-11-01] MEDS: SIMETHICONE 80 MG CHEW PO SCH ×3 (17:33→21:25)
[2022-11-01] MEDS: DOCUSATE SODIUM 100 MG CAP PO SCH (21:25)
[2022-11-01] MEDS: LACTATED RINGER'S 1,000 ML IV SCH (21:34)
[2022-11-02] MEDS ORDERED: diphenhydrAMINE Capsule 25 MG CAP PO PRN (03:05)
[2022-11-02] MEDS ORDERED: PROMETHAZINE HCL 25 MG in SODIUM CHLORIDE 0.9% 50 ML IV PRN (03:05)
[2022-11-02] MEDS ORDERED: diphenhydrAMINE 50 MG/ML VIAL IV PRN (03:05)
[2022-11-02] MEDS ORDERED: ZOLPIDEM TARTRATE 5 MG TAB PO PRN (03:05)
[2022-11-02] MEDS ORDERED: ONDANSETRON INJ 2 MG/ML 2 ML VIAL IV PRN (03:05)
[2022-11-02] MEDS: oxyCODONE/ACETAMINOPHEN 5mg/325mg TAB PO PRN ×5 (04:16→21:52)
[2022-11-02] MEDS: IBUPROFEN 600 MG TAB PO PRN ×5 (04:17→21:51)
--- NOTE | 2022-11-02 06:37 | Obstetrical Progress Note ---
Date of Service November 02, 2022 Assessment & Plan (1) Breech presentation: (2) 39 weeks gestation of : (3) Encounter for pre-operative examination: (4) AMA (advanced maternal age) multigravida 35+: Plan Ailyn is a 37 y/o female who is POD #1 following delivery at 39w1d. -Meeting all milestones -Vital signs stable, hemoglobin stable at 11.0 -O+/GBS negative/Rubella immune -Continue routine care, encourage ambulation Admission and Anticipated Discharge Date Admission Date: November 01, 2022 Supervising Physician Co-Signing Physician Notes Resident Physician Supervision Note: I was present with Dr. Sanders during the history and exam. I discussed the case with the resident and agree with the findings and plan as documented in the note. Any exceptions or clarifications are listed here: stable doing well. no pain issues. . ambul and voided well this am. lakhwinder po. abd soft obese ff 2 down nt, incision c/d/i. ext nt calves. pod #1 s/p LTCS, hgb noted. rh pos, ri, . routine care. Documented By: Fara Tijerina MD, FACOG Subjective Ailyn is a 37 y/o female who is POD #1 following delivery at 39w1d. She reports feeling well overall this morning. Notes some abdominal cramping and pain at incision site but is managed on analgesics. Voiding without issue since lee catheter removed. Tolerating meals overnight and able to ambulate some. Endorses passing gas. Has some persistent lochia with some improvement this morning. Review of Systems Constitutional: no fever, no chills and no sweats Respiratory: no cough, no dyspnea and no wheezing Cardiovascular: no chest pain, no palpitations and no calf pain Genitourinary: no dysuria Neurologic: no headache(s) Physical Exam Constitutional: WD/WN, vitals as above no acute distress Respiratory: no respiratory distress Auscultation: lungs clear to auscultation bilaterally; no rales, no rhonchi and no wheezes Cardiovascular: RRR, no murmur, no edema Extremities: no calf tenderness and no edema Negative Isaias's sign bilaterally. Gastrointestinal (Abdomen): Inspection/Auscultation: normal bowel sounds Genitourinary: Uterine fundus firm, palpable below the umbilicus. Incision clean and healing appropriately. Results & Data Vital Signs (Past 12 Hours) Vital Signs Temp Pulse Resp BP Pulse Ox O2 Del Method 11/02/22 04:00 36.8 C 74 18 110/73 99 Room Air 11/02/22 03:05 18 98 11/02/22 02:00 18 97 11/01/22 21:30 18 97 11/01/22 20:30 16 98 11/01/22 19:40 16 95 11/02/22 01:03 18 98 11/01/22 23:45 Room Air 11/01/22 23:45 36.7 C 75 18 103/60 96 Room Air 11/01/22 23:10 18 96 11/02/22 00:05 18 98 11/01/22 19:40 36.6 C 76 16 116/74 95 Room Air Resident Activity Tracking Resident Involvement: Resident Care Provided Care Provided: OB Delivery
[2022-11-02 06:44] LABS: Basophils # (auto) 0.05 K/uL (0-0.2); Basophils % (auto) 0.4 %; Eosinophils # (auto) 0.48 K/uL (0-0.50); Eosinophils % (auto) 3.9 %; Hematocrit (blood only) 33.7 % (37.0-47.0); Immature Granulocytes # (auto) 0.09 K/uL (0.01-0.20); Immature Granulocytes % (auto) 0.7 %; Lymphocytes # (auto) 1.78 K/uL (1.2-3.4); Lymphocytes % (auto) 14.3 %; Mean Corpuscular Hemoglobin 27.9 pg (25.0-34.0); Mean Corpuscular Hgb Conc 32.6 g/dL (32.0-36.0); Mean Corpuscular Volume 85.5 fL (80.0-100.0); Mean Platelet Volume 10.5 fL (9.4-12.4); Monocytes # (auto) 0.84 K/uL (0.11-0.59); Monocytes % (auto) 6.8 %; Neutrophils % (auto) 73.9 %; Platelet Count 238 K/uL (130-400); RDW Coefficient of Variation 13.8 % (11.5-14.5); RDW Standard Deviation 42.5 fL (36.4-46.3); Red Blood Count 3.94 M/uL (4.20-5.40); White Blood Count 12.44 K/ul (4.8-10.8)
[2022-11-02] MEDS: DOCUSATE SODIUM 100 MG CAP PO SCH ×2 (07:53→21:51)
[2022-11-02] MEDS: FERROUS SULFATE 325 MG TAB PO SCH (07:53)
[2022-11-02] MEDS: PRENATAL VITAMIN 1 TAB PO SCH (07:53)
[2022-11-02] MEDS: SIMETHICONE 80 MG CHEW PO SCH ×4 (07:53→21:51)
[2022-11-03] MEDS: oxyCODONE/ACETAMINOPHEN 5mg/325mg TAB PO PRN ×4 (02:51→17:02)
[2022-11-03] MEDS: IBUPROFEN 600 MG TAB PO PRN ×4 (02:52→17:02)
--- NOTE | 2022-11-03 05:39 | Obstetrical Progress Note ---
Date of Service November 03, 2022 Assessment & Plan (1) Breech presentation: (2) 39 weeks gestation of : (3) Encounter for pre-operative examination: (4) AMA (advanced maternal age) multigravida 35+: Plan Ailyn is a 37 y/o female who is POD #2 following delivery at 39w1d. -Meeting all milestones -Vital signs stable, hemoglobin stable at 11.1 -O+/GBS negative/Rubella immune -Continue routine care, encourage ambulation -Follow up for 6 week appointment -Anticipate d/c tomorrow but will have discharge info prepared Admission and Anticipated Discharge Date Admission Date: November 01, 2022 Supervising Physician Co-Signing Physician Notes Resident Physician Supervision Note: I interviewed and examined the patient. Discussed with Dr. Sanders and agree with findings and plan as documented in the note. Any exceptions or clarifications are listed here: Doing well day 2. routine care. Likely home tomorrow. Documented By: Desire Toth MD, FACOG Subjective Ailyn is a 37 y/o female who is POD #2 following delivery at 39w1d. She reports feeling well overall this morning. Notes some abdominal cramping and pain at incision site but is managed on analgesics and improving overall from yesterday. Voiding without issue. Tolerating meals and able to ambulate some. Endorses passing gas. Has some persistent lochia with some improvement this morning. She is undecided on whether or not she would like to go home today. Review of Systems Constitutional: no fever, no chills and no sweats Respiratory: no cough, no dyspnea and no wheezing Cardiovascular: no chest pain, no palpitations and no calf pain Genitourinary: no dysuria Neurologic: no headache(s) Physical Exam Constitutional: WD/WN, vitals as above no acute distress Respiratory: no respiratory distress Auscultation: lungs clear to auscultation bilaterally; no rales, no rhonchi and no wheezes Cardiovascular: RRR, no murmur, no edema Extremities: no calf tenderness and no edema Gastrointestinal (Abdomen): Inspection/Auscultation: normal bowel sounds Skin: no rashes, warm and dry Genitourinary: Uterine fundus palpable below umbilicus. Incision site clean and healing appropriately. Results & Data Vital Signs (Past 12 Hours) Vital Signs Temp Pulse Resp BP Pulse Ox O2 Del Method 11/03/22 00:00 37 C 76 18 123/82 97 Room Air 11/02/22 21:35 36.9 C 77 16 138/73 99 Room Air Resident Activity Tracking Resident Involvement: Resident Care Provided Care Provided: OB Delivery
[2022-11-03 06:24] LABS: Hematocrit (blood only) 34.7 % (37.0-47.0); Hemoglobin 11.1 g/dl (12.0-16.0)
[2022-11-03] MEDS: DOCUSATE SODIUM 100 MG CAP PO SCH (07:51)
[2022-11-03] MEDS: PRENATAL VITAMIN 1 TAB PO SCH (07:51)
[2022-11-03] MEDS: FERROUS SULFATE 325 MG TAB PO SCH (07:51)
[2022-11-03] MEDS: SIMETHICONE 80 MG CHEW PO SCH ×3 (07:51→17:02)
[2022-11-03] MEDS ORDERED: bisacodyL 10 MG SUPP PR PRN (10:52)
--- NOTE | 2022-11-04 20:57 | Discharge Summary ---
Date of Service Date of admission: November 01, 2022 Date of discharge: October Admission HPI Per Admitting Provider 37yo at 39 +wks ega on day of her admission for planned c/s. Patient with baby of unstable lie, breech today on u/s in background of polyhydramnios. She notes no pain. No rom, vb. +FM. NST today reactive. PNC c/b 1. AMA 2. Polyhydramnios 3. Breech presentation 4. Obesity PNL rhpos, ri, gbs neg OBH: x 1, sab x 1 GYNH: nl paps, no stds Discharge Data Consultations 11/01/22 08:17 Consult Anesthesiology Stat Procedures Performed Operation Date: 11/01/22 08:55 Actual Procedures p Primary Low Transverse Section in LD (Delivery of Baby through Abdominal Incision) delivery of live female child at 1019 - Fara Tijerina MD, [facility] Course (1) 39 weeks gestation of : (2) Breech presentation: Plan The patient underwent the above stated procedure without incident and her postoperative course and recovery was uncomplicated. On her postoperative day #2 she was tolerating a regular diet, voiding spontaneously, ambulating without problem and was using oral meds for adequate pain control. Her postoperative hemoglobin was 11.1. She was given written and verbal discharge instructions and told to followup in office at 6wks. She was given appropriate pain medicine prescriptions. Coding Level of Care Code None Diagnoses 39 weeks gestation of Z3A.39 Breech presentation O32.1XX0
== END 2022-11-03 17:30 | disposition home or self-care (01) | DRG 788 ==
LOC: 4S1 07:09 → EDSTATUS 08:55 → 4E2 13:30